=== PATIENT | female | born 1930 | race African-American/Black ===

== ENCOUNTER 2016-12-19 12:06 | Emergency (ER) | payer OTHER ==
[~2016-12-19] VITALS: Ht 152.4 cm; Wt 68.0 kg
--- NOTE | ~2016-12-19 | EKG ---
[address] [address] ELECTROCARDIOGRAM REPORT Name: TRAVIS GUSTAFSON Room #: [facility]#: [id number] Admission: 12/19/16 Attend Phys: Discharge: 12/19/16 Date of : 31 Report #: [id number] THIS REPORT FOR: //name// [facility] ED Test Date: 2016-12-19 Test Time: 13:10:15 Pat Name: TRAVIS GUSTAFSON Department: Room: Gender: F Homemaking Rehabilitation Consultant: PETRA : 1930 Requested By: Charmaine Horn Order Number: [id number] MD: Brandan Howard Measurements Intervals [place] Rate: 62 P: 28 MN: 163 QRS: -3 QRSD: 84 T: 49 QT: 450 QTc: 457 Interpretive Statements Sinus rhythm Left ventricular hypertrophy Compared to ECG 08/23/2015 21:46:11 Q waves no longer present Electronically Signed On 12-19-2016 16:25:35 CDT by Brandan Howard [email or web address] <ELECTRONICALLY SIGNED> By: Brandan Howard MD 12/19/16 1625 1310 1310 Brandan Howard MD /SHALINI
[~2016-12-19 12:06] MED LIST: ALLERGY RELIEF25 M2 PO; AMLODIPINE BESY10 MG PO; AZITHROMYCIN 2250 MG PO; BAYER CHEWABLE81 MG PO; BENADRYL25 MG PO; CARVEDILOL12.5 MG PO; CEFTIN 250 MG250 MG PO; COD LIVER OIL1 EAC4 PO; DOC-Q-LACE100 MG PO; DOK PLUS TABLE1 EACH PO; DOXYCYCLINE 10100 MG PO; DUONEB 2.5-0.5 M3 ML INH; ENOXAPARIN30 MG/0.1 SUBQ; FLONASE 0.05%50 MCG NASAL; HYDRALAZINE 10M10 MG PO; HYDRALAZINE 2525 MG PO; HYDROCODONE-AP1 EAC6 PO; LASIX 40 MG TAB40 M2 PO; LEVAQUIN 500 M500 MG PO; MEDROL4 MG PO; MIRALAX17 GM PO; MUCINEX TA600 MG/TA2 PO; NEURONTIN 300300 M1 PO; NITROGLYCERIN0.4 MG SUBLING; OMEPRAZOLE 20 M20 MG PO; POTASSIUM20 PO; ROBITUSSIN100 MG/53 PO; SINGULAIR 10 MG10 M1 PO; TESSALON PERLE100 MG PO; TYLENOL325 MG PO; VITAMIN D1000 UNI1 PO; VITAMIN E400 UNIT PO; VITAMINC500 PO; XANAX 0.25 MG0.25 MG PO; XANAX 0.5 MG0.5 MG PO
[2016-12-19 13:35] LABS: ABSOLUTE NEUTROPHILS 3.4 thou/uL (1.4-8.2); BASOPHILS 1.1 % (0.0-2.0); EOSINOPHILS 2.4 % (0.0-3.0); HEMATOCRIT 39.1 % (37.0-47.0); HEMOGLOBIN 12.8 gm/dL (12.0-15.0); LYMPHOCYTES 19.8 % (24.0-44.0); MCH 27.3 pg (26.0-34.0); MCHC 32.9 g/dL (28.0-37.0); MCV 83.1 fL (80.0-100.0); MONOCYTES 10.3 % (1.0-8.0); PLATELET COUNT 187 thou/uL (150-400); POLYS 66.4 % (36.0-66.0); RBC 4.71 mil/uL (4.20-5.00); RDW 17.3 % (10.5-14.5); WBC 5.2 thou/uL (4.0-11.0)
[2016-12-19 13:37] LABS: MANUAL DIFF NO
[2016-12-19 13:50] LABS: ANION GAP 6 mmol/L (7-16); BUN 17 mg/dL (7-18); CALCIUM 8.9 mg/dL (8.5-10.1); CHLORIDE 108 mmol/L (98-107); CO2 28 mmol/L (21-32); CREATININE 0.9 mg/dL (0.6-1.0); GLUCOSE 81 mg/dL (74-106); POTASSIUM 3.4 mmol/L (3.5-5.1); SODIUM 142 mmol/L (136-145)
[2016-12-19 13:59] LABS: TROPONIN-I < 0.04 ng/mL (<0.04-0.07)
[2016-12-19] MEDS ORDERED: AUGMENTIN 875-1 EACH PO (14:07)
== END 2016-12-19 14:46 | disposition home or self-care (01) ==
LOC: ER 12:06
PROVIDERS: Emergency Medicine
DX: J18.9 Pneumonia, unspecified organism (principal); R07.89 Other chest pain; I10 Essential (primary) hypertension; I25.10 Atherosclerotic heart disease of native coronary artery without angina pectoris; I25.2 Old myocardial infarction; Z86.73 Personal history of transient ischemic attack (TIA), and cerebral infarction without residual deficits; Z87.19 Personal history of other diseases of the digestive system; Z88.2 Allergy status to sulfonamides; Z88.5 Allergy status to narcotic agent

== ENCOUNTER 2017-12-02 10:44 | Inpatient (IN) | payer OTHER ==
[~2017-12-02] VITALS: Ht 157.5 cm; Wt 71.5 kg
--- NOTE | ~2017-12-02 | HC ---
[facility] [place] [address] CONSULTATION Name: TRAVIS GUSTAFSON Room #: 350-P [facility] IN ..#: [id number] Admission: 12/02/17 Attend Phys: Quintin aVlverde MD Discharge: 12/05/17 Date of : 31 Report #: [id number] THIS REPORT FOR: //name// CC: Quintin Valverde [facility] physician/PCP DATE OF SERVICE: 12/04/2017 HISTORY OF PRESENT ILLNESS: The patient is an 86-year-old female who is admitted with bright red blood per rectum, approximately 3 episodes. She underwent a flexible sigmoidoscopy on 12/03/2017 showing bleeding of the sigmoid colon, multiple diverticula in the left colon. She is being monitored regarding her current anemia. We are seeing her in rehabilitation medicine consultation. PAST MEDICAL HISTORY: She had a recent fall within the last couple of weeks, caused a scrape of her left anterior acuna and bruising of some left ribs; apparently, she was in an elevator and there was some sudden movement within the elevator that she needed to readjust for. 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 MEDICATIONS: Please see the full medication listing. This includes vitamins, herbals and supplements. ALLERGIES: CODEINE AND SULFA. SOCIAL HISTORY: She lives in an apartment alone. She did not utilize gait aids, although she has occasional cane and walker that she will utilize. She has an involved son. She also has several daughters. She is closely involved in buddhism. REVIEW OF SYSTEMS: Some residual rib discomfort. She notes some concern regarding the left anterior acuna excoriation, which is dressed. No current complaints of chest pain or shortness of breath or abdominal discomfort. Some mild nausea. PHYSICAL EXAMINATION: GENERAL: A pleasant rather slender 86-year-old female, appeared somewhat younger than stated age. She is bright, pleasant, somewhat verbose. Facies appeared to be symmetric. HEENT: Appeared to be benign. NEUROLOGIC: Cranial nerves grossly intact. Functional range of motion of both upper extremities strength is grade 4-/5. DTRs are trace to 1. Left anterior acuna does have an excoriation with dressing in place. There is no focal calf swelling. She can move the right lower extremity, probably a grade 4-/5. Left [address] [address] CONSULTATION Name: TRAVIS GUSTAFSON Room #: 350-P [facility] IN ..#: [id number] Admission: 12/02/17 Attend Phys: Quintin Valverde MD Discharge: 12/05/17 Date of : 31 Report #: [id number] lower extremity favors moving the left ankle some with the wound on her acuna, otherwise probably a grade 3+4-/5. She might have some mild increased tone of the left upper and left lower extremity. IMPRESSION: An 86-year-old female with the following problem list: 1. Generalized weakness and debilitation. 2. Diverticular bleed. 3. Acute blood loss anemia. 4. Hypertension. 5. Past history of cerebrovascular accident with some residual left-sided weakness. 6. Chronic kidney disease stage 3. 7. History of congestive heart failure. 8. Moderate aortic stenosis. 9. Coronary artery disease. PLAN: Insurance will need to be checked regarding rehab therapy issues. The patient indicates she wants her primary care changed to someone within the [facility]. We will ask Case Management to give information regarding this to the patient for followup post-discharge. Thank you for asking us to assist in this patient's care. <ELECTRONICALLY SIGNED> By: Paul Valdez MD 12/10/17 1455 1120 1500 Paul Valdez MD /nt
--- NOTE | ~2017-12-02 | EKG ---
[address] [address] ELECTROCARDIOGRAM REPORT Name: TRAVIS GUSTAFSON Room #: 350-[facility] IN ..#: [id number] Admission: 12/02/17 Attend Phys: Quintin Valverde MD Discharge: 12/05/17 Date of : 31 Report #: [id number] THIS REPORT FOR: //name// [facility] ED Test Date: 2017-12-02 Test Time: 11:03:23 Pat Name: TRAVIS GUSTAFSON Department: Room: 350 Gender: F Buggy Ladle Tender: MZOOK : 1930 Requested By: Destiny Robins Order Number: [id number] MD: Brandan Howard Measurements Intervals [place] Rate: 66 P: 40 MA: 149 QRS: -2 QRSD: 88 T: 71 QT: 420 QTc: 441 Interpretive Statements Sinus rhythm LVH with secondary repolarization abnormality Compared to ECG 01/23/2017 08:27:27 Left ventricular hypertrophy now present Early repolarization now present T-wave abnormality no longer present Prolonged QT interval no longer present Electronically Signed On 12-06-2017 14:37:04 CDT by Brandan Howard [email or web address] <ELECTRONICALLY SIGNED> By: Brandan Howard MD 12/06/17 1437 1103 1103 Brandan Howard MD /EPI
--- NOTE | ~2017-12-02 | P ---
[facility] [place] [address] PROCEDURE REPORT Name: TRAVIS GUSTAFSON Room #: 350-P ADM IN M.R.#: [id number] Admission: 12/02/17 Attend Phys: Quintin Valverde MD Discharge: Date of : 31 Report #: [id number] THIS REPORT FOR: //name// CC: Quintin Valverde [facility] physician/PCP DATE OF SERVICE: 12/04/2017 CHIEF COMPLAINT: Incision, debridement and evacuation of hematoma of the left leg. PREPROCEDURE DIAGNOSIS: Infected necrotic traumatic wound to the left lower extremity with retained hematoma. POSTPROCEDURE DIAGNOSIS: Infected necrotic traumatic wound to the left lower extremity with retained hematoma. PROCEDURE PERFORMED: Surgical debridement and evacuation of hematoma, left leg. HISTORY OF PRESENT ILLNESS: This is an 86-year-old female patient who sustained an injury to her left leg. She has had pain, swelling and drainage since that time. Examination reveals necrotic tissue and then an underlying hematoma. A timeout was performed prior to the procedure and the correct patient, site and laterality were confirmed. The patient was agreeable and gave verbal consent to the procedure. DESCRIPTION OF PROCEDURE: The left leg was prepped and draped in the usual sterile fashion and anesthetized with topical 2% lidocaine gel. Following this, a #15 bladed scalpel was used to excise necrotic tissue down to and including subcutaneous tissue exceeding the margins of the wounds. The debridement was carried down to healthy clean bleeding tissue. Moderate amount of necrotic tissue and retained hematoma were removed. The preprocedure measurements were 2.5 cm x 2.2 cm x 0.0 cm. The postprocedure diagnosis was 2.5 cm x 2.2 cm x 1.4 cm, with additional undermining of 1.5 cm from the 6 to 2 o'clock position. The patient tolerated the procedure well, with minimal pain. Estimated blood loss 3 mL. The wound was packed with a moist gauze dressing and the patient was left in a stable condition. <ELECTRONICALLY SIGNED> By: Varghese Starks MD 12/05/17 1402 12 2358 Varghese Starks MD /nt
--- NOTE | ~2017-12-02 | P ---
[facility] [place] [address] PROCEDURE REPORT Name: TRAVIS GUSTAFSON Room #: 350-P [facility] IN M.R.#: [id number] Admission: 12/02/17 Attend Phys: Quintin Valverde MD Discharge: 12/05/17 Date of : 31 Report #: [id number] THIS REPORT FOR: //name// CC: Quintin Valverde M.D. [facility] physician/PCP DATE OF SERVICE: 12/03/2017 PROCEDURE PERFORMED: Flexible sigmoidoscopy. HISTORY OF PRESENT ILLNESS: The patient is an 86-year-old female who presented with a GI bleed beginning yesterday morning. She describes bright red blood per rectum and maroon stools. She actually had a similar episode in January of last year and an arteriogram was performed, which was negative. She has a known history of pandiverticulosis on previous colonoscopy by a different hand router operator several years ago. She also is complaining of abdominal pain on admission. Her admit hemoglobin was 12.4, this dropped to 8.3 overnight. She had several episodes of bright red blood last evening, but this has slowed significantly. A CT scan of her abdomen and pelvis was performed, which showed high density in the descending colon and sigmoid colon junction region, suggesting a GI bleed from the sigmoid colon area. Plan is for flexible sigmoidoscopy today. DESCRIPTION OF PROCEDURE: The risks and benefits of the procedure were explained to the patient, those risks including but not limited to bleeding, perforation, the risk of sedation. She understood these risks and gave informed consent. Sedation was given using propofol per anesthesia. Next, a digital rectal exam was initially performed, which was normal. Next, using a standard Olympus colonoscope, the scope was placed in the patient's anus and advanced under direct vision into the midportion of the transverse colon. The overall prep was fair in areas, but most areas were fairly well visualized, multiple washings and aspirations were performed. The transverse colon was essentially normal, a few scattered diverticula, no evidence of blood throughout the transverse colon or descending colon. Multiple diverticula were noted in the descending colon and sigmoid colon. At the distal sigmoid colon, there was some bright red old blood and in the rectum. Multiple washings and aspirations were performed. There were no signs of active bleeding. There was no evidence of colitis. No mass lesions or polyps were noted. I spent time looking closely in these areas, but again no ulcerations or active bleeding source was noted. On retroflexion in the rectum, no abnormalities were noted. The scope was then withdrawn and the procedure terminated. The patient tolerated the procedure well. IMPRESSION: 1. Left-sided diverticulosis, small amount of old blood noted in the rectum and [facility] [address] [place] [address] PROCEDURE REPORT Name: TRAVIS GUSTAFSON Rohini Room #: 350-P [facility] IN M.R.#: [id number] Admission: 12/02/17 Attend Phys: Quintin Valverde MD Discharge: 12/05/17 Date of : 31 Report #: [id number] distal sigmoid colon. 2. Otherwise, normal flexible sigmoidoscopy. RECOMMENDATIONS: 1. Suspect the patient had a diverticular bleed, which has now stopped. At this time, we would continue to observe. If there is evidence of recurrent bleeding, consider an arteriogram. 2. We will advance diet as tolerated. Thank you for allowing me to participate in her care. <ELECTRONICALLY SIGNED> By: Greg Cordova MD 12/09/17 1727 1211 1303 Greg Cordova MD /nt
--- NOTE | ~2017-12-02 | EKG ---
[address] [address] ELECTROCARDIOGRAM REPORT Name: TRAVIS GUSTAFSON Room #: 350-[facility] IN .R.#: [id number] Admission: 12/02/17 Attend Phys: Quintin Valverde MD Discharge: 12/05/17 Date of : 31 Report #: [id number] THIS REPORT FOR: //name// [facility] Test Date: 2017-12-02 Test Time: 16:59:15 Pat Name: TRAVIS GUSTAFSON Department: Room: 350 Gender: F Gynaecological Oncologist: Abhinav AQUINO : 1930 Requested By: Quintin Valverde Order Number: [id number] MD: Brandan Howard Measurements Intervals [place] Rate: 77 P: OR: QRS: -13 QRSD: 85 T: 81 QT: 431 QTc: 488 Interpretive Statements Atrial fibrillation LVH with secondary repolarization abnormality Compared to ECG 01/23/2017 08:27:27 Left ventricular hypertrophy now present Early repolarization now present Sinus rhythm no longer present T-wave abnormality no longer present Electronically Signed On 12-06-2017 14:39:39 CDT by Brandan Howard [email or web address] <ELECTRONICALLY SIGNED> By: Brandan Howard MD 12/06/17 1439 1659 1659 Brandan Howard MD /EPI
--- NOTE | ~2017-12-02 | HC ---
[facility] [place] [address] CONSULTATION Name: TRAVIS GUSTAFSON Room #: 350-P ADM IN ..#: [id number] Admission: 12/02/17 Attend Phys: Quintin Valverde MD Discharge: Date of : 31 Report #: [id number] THIS REPORT FOR: //name// CC: Quintin WIN physician/PCP DATE OF SERVICE: 12/04/2017 CHIEF COMPLAINT: Traumatic wound to the left lower extremity. HISTORY OF PRESENT ILLNESS: This is an 86-year-old female patient who sustained a traumatic injury to her left lower extremity several weeks ago. She has had pain and drainage since that time. She was noted to have necrotic tissue and a retained hematoma. This was opened, debrided and drained at the bedside. Please see separate procedure note. The patient also complains that she has some fractured ribs, but denies any other wound related issues. PAST MEDICAL HISTORY: Positive for history of hypertension, diverticulosis, history of abdominal pain, rectal bleeding and previous pneumonia. ALLERGIES: SULFA AND CODEINE. MEDICATIONS: Include Tylenol, alprazolam, amlodipine, Coreg, diphenhydramine, Colace, famotidine, gabapentin, hydralazine, lisinopril, Zofran, polyethylene glycol. SOCIAL HISTORY: The patient admits to occasional alcohol use. Denies smoking. FAMILY HISTORY: Noncontributory. REVIEW OF SYSTEMS: CONSTITUTIONAL: The patient denies fever, chills or weight loss. NEUROLOGICAL: The patient does have some left-sided weakness following previous cerebrovascular accident. EYES: The patient denies visual changes, redness or drainage. ENT: The patient denies earache, nasal drainage, sore throat. CARDIOVASCULAR: The patient denies chest pain, palpitations, diaphoresis. PULMONARY: The patient denies cough or shortness of breath. GASTROINTESTINAL: The patient denies nausea or abdominal pain. ORTHOPEDIC: The patient does complain of pain and swelling, drainage from her left leg. Other systems in a 14-point review of systems are negative. PHYSICAL EXAMINATION: VITAL SIGNS: At this time includes temperature 36.6, pulse 59, respiratory rate of 17, blood pressure 120/60. [facility] [address] [place] [address] CONSULTATION Name: TRAVIS GUSTAFSON Room #: 350-[facility] IN [facility].#: [id number] Admission: 12/02/17 Attend Phys: Quintin Valverde MD Discharge: Date of : 31 Report #: [id number] GENERAL: This is a chronically ill-appearing female patient who appears to be in minimal distress. HEENT: Head normocephalic. Nose and throat are clear. NECK: Supple. LUNGS: Clear. HEART: Regular. ABDOMEN: Bowel sounds present. EXTREMITIES: Demonstrate a traumatic wound with eschar and some drainage to the left leg, this was drained. Please see separate procedure note and the hematoma was evacuated. NEUROLOGIC: The patient has left-sided weakness. LABORATORY DATA: Includes white blood cell count 5.2 with a hemoglobin of 7.5, hematocrit of 22.6. Sodium 144, potassium 3.5, chloride 113, CO2 of 25, BUN 26, creatinine 1.0. Albumin is low at 2.6. CLINICAL IMPRESSION: 1. Traumatic wound to the left lower extremity with tissue necrosis and retained hematoma, status post incision and drainage and evacuation of hematoma. 2. Moderate protein calorie malnutrition. 3. History of rectal bleeding. 4. Hypertension. RECOMMENDATIONS: At this point in time, we will pack the wound with quarter strength Dakin's moist gauze on a b.i.d. basis. We will provide gentle compression with Kerlix and Feliberto wrap. Hopefully, this will slowly fill in now that the hematoma has been evacuated. I appreciate having been asked to see her in consultation. <ELECTRONICALLY SIGNED> By: Varghese Starks MD 12/05/17 1402 16 3943 Varghese Starks MD /nt
[~2017-12-02 10:44] MED LIST changes: +AUGMENTIN 875-1 EACH PO; +COLCHICINE0.6 MG PO; +LISINOPRIL20 MG PO
[2017-12-02 10:53] VITALS: BP 122/71
[2017-12-02 11:53] LABS: ABSOLUTE NEUTROPHILS 3.5 thou/uL (1.4-8.2); BASOPHILS 0.8 % (0.0-2.0); EOSINOPHILS 1.9 % (0.0-3.0); HEMATOCRIT 37.5 % (37.0-47.0); HEMOGLOBIN 12.4 gm/dL (12.0-15.0); LYMPHOCYTES 14.3 % (24.0-44.0); MCH 27.2 pg (26.0-34.0); MCHC 33.1 g/dL (28.0-37.0); MCV 82.2 fL (80.0-100.0); MONOCYTES 6.3 % (1.0-8.0); PLATELET COUNT 204 thou/uL (150-400); POLYS 76.7 % (36.0-66.0); RBC 4.56 mil/uL (4.20-5.00); RDW 17.6 % (10.5-14.5); WBC 4.5 thou/uL (4.0-11.0)
[2017-12-02 12:00] LABS: CALCIUM 9.2 mg/dL (8.5-10.1); CREATININE 1.5 mg/dL (0.6-1.0); POTASSIUM 3.8 mmol/L (3.5-5.1)
[2017-12-02 12:05] LABS: APTT 22.9 Seconds (24.5-32.8); INR 1.1
[2017-12-02 12:06] LABS: ALBUMIN 3.4 g/dL (3.4-5.0); TOTAL BILIRUBIN 0.3 mg/dL (<0.1-1.0); TOTAL PROTEIN 6.9 g/dL (6.4-8.2)
[2017-12-02 15:48] VITALS: BP 155/85
[2017-12-02 17:12] VITALS: BP 112/71
[2017-12-02 20:20] VITALS: BP 166/96
[2017-12-02 21:17] LABS: HEMATOCRIT 29.7 % (37.0-47.0)
[2017-12-02] MEDS ORDERED: XANAX 0.25 MG0.25 MG PO (23:49)
[2017-12-03] VITALS: BP 144/64
[2017-12-03 04:18] LABS: HEMATOCRIT 24.6 % (37.0-47.0); HEMOGLOBIN 8.3 gm/dL (12.0-15.0); MCH 27.5 pg (26.0-34.0); MCHC 33.8 g/dL (28.0-37.0); MCV 81.4 fL (80.0-100.0); RBC 3.03 mil/uL (4.20-5.00); RDW 17.7 % (10.5-14.5); WBC 4.8 thou/uL (4.0-11.0)
[2017-12-03 04:27] LABS: ALBUMIN 2.6 g/dL (3.4-5.0); CALCIUM 8.3 mg/dL (8.5-10.1); POTASSIUM 3.5 mmol/L (3.5-5.1); TOTAL BILIRUBIN 0.4 mg/dL (<0.1-1.0); TOTAL PROTEIN 5.1 g/dL (6.4-8.2)
[2017-12-03 04:40] VITALS: BP 120/58
[2017-12-03 08:26] VITALS: BP 108/52
[2017-12-03 13:44] VITALS: BP 150/93
[2017-12-03 16:41] VITALS: BP 166/73
[2017-12-03] MEDS ORDERED: DIPHENHIST50 MG PO (19:38)
[2017-12-03 20:50] VITALS: BP 159/89
[2017-12-04 00:20] VITALS: BP 140/74
[2017-12-04 05:20] VITALS: BP 122/55
[2017-12-04 05:30] LABS: ABSOLUTE NEUTROPHILS 3.1 thou/uL (1.4-8.2); EOSINOPHILS 3.6 % (0.0-3.0); HEMATOCRIT 22.6 % (37.0-47.0); HEMOGLOBIN 7.5 gm/dL (12.0-15.0); LYMPHOCYTES 26.2 % (24.0-44.0); MCH 27.4 pg (26.0-34.0); MCHC 33.3 g/dL (28.0-37.0); MCV 82.3 fL (80.0-100.0); MONOCYTES 8.3 % (1.0-8.0); PLATELET COUNT 158 thou/uL (150-400); POLYS 60.9 % (36.0-66.0); RBC 2.75 mil/uL (4.20-5.00); RDW 17.3 % (10.5-14.5); WBC 5.2 thou/uL (4.0-11.0)
[2017-12-04 08:16] VITALS: BP 174/87
[2017-12-04 11:48] VITALS: BP 146/70
[2017-12-04 16:00] VITALS: BP 151/83
[2017-12-04 19:06] VITALS: BP 128/60
[2017-12-05 03:15] VITALS: BP 108/54
[2017-12-05 06:12] LABS: ABSOLUTE NEUTROPHILS 2.9 thou/uL (1.4-8.2); BASOPHILS 1.2 % (0.0-2.0); EOSINOPHILS 4.6 % (0.0-3.0); HEMATOCRIT 23.6 % (37.0-47.0); HEMOGLOBIN 7.9 gm/dL (12.0-15.0); LYMPHOCYTES 29.3 % (24.0-44.0); MCH 27.7 pg (26.0-34.0); MCHC 33.3 g/dL (28.0-37.0); MCV 83.1 fL (80.0-100.0); MONOCYTES 7.9 % (1.0-8.0); PLATELET COUNT 165 thou/uL (150-400); RBC 2.84 mil/uL (4.20-5.00); RDW 18.2 % (10.5-14.5); WBC 5.1 thou/uL (4.0-11.0)
[2017-12-05 07:25] LABS: ANISOCYTOSIS 1+
[2017-12-05 07:36] VITALS: BP 122/67
[2017-12-05 12:00] VITALS: BP 159/63
[2017-12-05 15:26] VITALS: BP 146/63
== END 2017-12-05 17:34 | DRG 356 ==
LOC: ER 10:44 → EROBS 13:07 → 3W 13:07 → 4W 16:00 → 3W 20:18
PROVIDERS: Hospitalist; Specialist; Student in an Organized Health Care Education/Training Program
PROC: 0DJD8ZZ Inspection of Lower Intestinal Tract, Via Natural or Artificial Opening Endoscopic (ICD-10-PCS; 2017-12-03)
PROC: 0JBP0ZZ Excision of Left Lower Leg Subcutaneous Tissue and Fascia, Open Approach (ICD-10-PCS; principal; 2017-12-04)
PROC: 0JCP0ZZ Extirpation of Matter from Left Lower Leg Subcutaneous Tissue and Fascia, Open Approach (ICD-10-PCS; principal; 2017-12-04)
DX: K57.31 Diverticulosis of large intestine without perforation or abscess with bleeding (principal); E43 Unspecified severe protein-calorie malnutrition; D62 Acute posthemorrhagic anemia; E44.0 Moderate protein-calorie malnutrition; I69.354 Hemiplegia and hemiparesis following cerebral infarction affecting left non-dominant side; I13.0 Hypertensive heart and chronic kidney disease with heart failure and stage 1 through stage 4 chronic kidney disease, or unspecified chronic kidney disease; K62.5 Hemorrhage of anus and rectum; I25.10 Atherosclerotic heart disease of native coronary artery without angina pectoris; I73.9 Peripheral vascular disease, unspecified; I50.9 Heart failure, unspecified; N18.3 Chronic kidney disease, stage 3 (moderate); I35.0 Nonrheumatic aortic (valve) stenosis; J30.9 Allergic rhinitis, unspecified; M62.84 Sarcopenia; S81.802A Unspecified open wound, left lower leg, initial encounter; I25.2 Old myocardial infarction; Z90.49 Acquired absence of other specified parts of digestive tract; Z90.711 Acquired absence of uterus with remaining cervical stump; Z88.6 Allergy status to analgesic agent; Z88.2 Allergy status to sulfonamides; Z68.28 Body mass index [BMI] 28.0-28.9, adult; Z95.5 Presence of coronary angioplasty implant and graft; Z87.11 Personal history of peptic ulcer disease; X58.XXXA Exposure to other specified factors, initial encounter; Y93.89 Activity, other specified; Y92.89 Other specified places as the place of occurrence of the external cause; Y99.8 Other external cause status; Z79.899 Other long term (current) drug therapy
CPT/HCPCS: 10879; 62110; 62900; 70005

== ENCOUNTER 2017-12-17 11:28 | Inpatient (IN) | payer OTHER ==
[~2017-12-17] VITALS: Ht 157.5 cm; Wt 72.8 kg
--- NOTE | ~2017-12-17 | HC ---
[facility] [address] [place] [address] CONSULTATION Name: TRAVIS GUSTAFSON Room #: 215-P ADM IN M.R.#: [id number] Admission: 12/17/17 Attend Phys: Bhavik Marie MD Discharge: Date of : 31 Report #: [id number] THIS REPORT FOR: //name// CC: Bhavik Marie Pulmonary Consultation REFERRAL PHYSICIAN: Bhavik Marie MD REASON FOR REFERRAL: Hypoxia. HISTORY OF PRESENT ILLNESS: The patient is an 87-year-old -[place] female who presents to emergency room following a fall. She had complained of chest pain. Since admission, she has been noted to be hypoxic. A pulmonary consultation was consulted. According to records, she apparently fell on the left side of the chest. Chest x-ray earlier today shows mild infiltrates in the left lower lobe. CT chest was performed yesterday showing small bilateral pleural effusion, mild infiltrates in both of the bases, atelectasis, and a right upper lobe nodule. The patient states that she has been short of breath for the past year. She is concerned about possible mold exposure where she lives. She resides at [facility]. Currently, she denies any change, productive cough or hemoptysis. She has left-sided chest wall pain. The patient has smoked, but quit many years ago. She has never been diagnosed with chronic lung disease. PAST MEDICAL HISTORY: Notable for history of CVA with left-sided weakness, coronary artery disease with myocardial infarction, hypertension, peripheral vascular disease with undergoing stent placement, history of heart failure, grade 1 diastolic dysfunction, moderate aortic stenosis. PAST SURGICAL HISTORY: As mentioned above including a partial hysterectomy. ALLERGIES: CODEINE, SULFA, reactions not specified. MEDICATIONS: From the skilled nursing include hydralazine, Coreg, Zantac, Benadryl, omeprazole, MiraLax, Neurontin, Singulair, Flonase, amlodipine, vitamin D supplements, Zestril. FAMILY HISTORY: Noncontributory. SOCIAL HISTORY: As mentioned above. The patient has smoked many years ago. She smoked in college only. Otherwise denies any alcohol use. She currently resides at [facility]. [address] [address] CONSULTATION Name: TRAVIS GUSTAFSON Room #: 215-P [facility] IN [facility]#: [id number] Admission: 12/17/17 Attend Phys: Bhavik Marie MD Discharge: Date of : 31 Report #: [id number] REVIEW OF SYSTEMS: As mentioned above, otherwise 10-point system review negative. PHYSICAL EXAMINATION: GENERAL: She is awake, alert, in no apparent distress. She appears mildly dyspneic. VITAL SIGNS: Temperature is 97.6 degrees Fahrenheit, pulse is 65, respiratory rate is 16, blood pressure is 147/65 mmHg, saturation is 91% on O2. HEENT: Normocephalic, atraumatic. NECK: Supple, without lymphadenopathy or thyromegaly. CHEST: Breath sounds are fair due to poor effort. Few scattered crackles in the bases. No wheezes. CARDIOVASCULAR: Normal S1, S2. There are no murmurs or gallop. There is no JVD. There is no carotid bruit. Pulses are 2+/4+ bilaterally. ABDOMEN: Soft, nontender, no organomegaly or masses felt. GENITOURINARY: Deferred. RECTAL: Deferred. EXTREMITIES: There is no edema, cyanosis or clubbing. LABORATORY DATA: Chest x-ray and chest CT as mentioned above. Chest x-ray earlier today shows slight increase in left lower lobe infiltrates. Chest CT as mentioned above. A 2D echocardiogram showed pulmonary artery pressure measuring 78 mmHg, moderate aortic stenosis. Right ventricle is dilated. LV function is normal. Ejection fraction is felt to be normal. Grade 2 pseudonormal filling dynamic, mild mitral regurgitation. Nuclear cardiac stress testing showed no evidence of ischemia. Troponin 0.27. Lumbar spine x-ray shows spondylosis. CT of the cervical spine was grossly unremarkable. Shoulder x-ray shows no obvious subluxation or fractures. Electrolytes: Sodium 140, potassium 4.5, chloride 106, CO2 of 26, BUN 24, creatinine is 1.4. Liver enzymes are grossly unremarkable. WBC 6000, hemoglobin 9.4. Arterial blood gas revealed pH 7.40, pCO2 of 41, and pO2 of 52 on 2 L of O2. IMPRESSION: 1. Acute hypoxic respiratory failure in this 87-year-old -[place] female. She recently fell sustaining injuries to the left chest. Chest x-ray shows increased infiltrate, possible atelectasis in the left lower lobe. Etiology probably related to pulmonary contusion, atelectasis. I do not think it is related to pulmonary embolus. Pneumonia is felt to be less likely though cannot be ruled out. 2. Pulmonary hypertension, severe, may be related to chest injuries mentioned [facility] [address] [place] [address] CONSULTATION Name: TRAVIS GUSTAFSON Room #: 215-P ADM IN M.R.#: [id number] Admission: 12/17/17 Attend Phys: Bhavik Marie MD Discharge: Date of : 31 Report #: [id number] above. She also has valvular cardiomyopathy as a secondary cause. With advanced age, I do not think further workup is indicated at this time. We would suggest followup echocardiogram in the next 6 months. 3. History of coronary artery disease, nuclear stress testing as mentioned above. It is grossly unremarkable. 4. History of cerebrovascular accident, mild weakness on the left leg. 5. Hypertension. 6. Debility and weakness. 7. Chronic back pain. RECOMMENDATION: We will continue O2 for saturation 90%, chest physiotherapy, followup chest x-ray. I do not think antibiotics are indicated at this time. Increasing mobility, ambulation may help. Thank you for this consultation. <ELECTRONICALLY SIGNED> By: Kali Jaimes MD 12/20/17 1906 1659 0513 Kali Jaimes MD /nt
--- NOTE | ~2017-12-17 | EKG ---
[address] [address] ELECTROCARDIOGRAM REPORT Name: TRAVIS GUSTAFSON Rohini Room #: 215-[facility] IN M.R.#: [id number] Admission: 12/17/17 Attend Phys: Bhavik Marie MD Discharge: 12/26/17 Date of : 31 Report #: [id number] THIS REPORT FOR: //name// [facility] Test Date: 2017-12-26 Test Time: 17:18:57 Pat Name: TRAVIS GUSTAFSON Department: Room: 215 Gender: F Global Sourcing Manager: WENDY : 1930 Requested By: Kali Jaimes Order Number: [id number] MD: Brandan Howard Measurements Intervals [place] Rate: 48 P: -83 [place]: 144 QRS: -2 QRSD: 85 T: 24 QT: 473 QTc: 423 Interpretive Statements Sinus or ectopic atrial bradycardia Atrial premature complex Left ventricular hypertrophy Compared to ECG 12/17/2017 12:46:19 Electronically Signed On 12-27-2017 8:20:24 CDT by Brandan Howard [email or web address] <ELECTRONICALLY SIGNED> By: Brandan Howard MD 12/27/17 0820 17 17 Brandan Howard MD /EPI
--- NOTE | ~2017-12-17 | 2DMMODE ---
[facility] [address] [place] [address] 2 D/M-MODE ECHOCARDIOGRAM Name: SJTRAVIS L Room #: 215-P [facility] IN ..#: [id number] Admission: 12/17/17 Attend Phys: Bhavik Marie MD Discharge: Date of : 32 Date of Service: 12/18/17 1529 Report #: [id number] THIS REPORT FOR: //name// APPROVED REPORT Study performed: 12/18/2017 13:00:14 EXAM: Comprehensive 2D, Doppler, and color-flow Echocardiogram Patient Location: Bedside Room #: [facility] Status: routine BSA: 1.78 HR: 57 bpm BP: 150/70 mmHg Rhythm: NSR Other Information Study Quality: Good Indications Aortic Valve Disease Congestive Heart Failure CAD Hypertension/HDD 2D Dimensions RVDd: 47.20 mm IVSd: 12.46 (7-11mm) LVOT Diam: 18.35 (18-24mm) LVDd: 39.66 mm PWd: 12.29 (7-11mm) Ascending Ao: 32.05 (22-36mm) LVDs: 24.51 (25-40mm) Aortic Root: 31.06 mm IVC: 29.00 mm Volumes Left Atrial Volume (Systole) Single Plane 4CH: 99.25 mL Single Plane 2CH: 117.83 mL LA ESV Index: 67.00 mL/m2 Aortic Valve AoV Peak Romeo.: 3.17 m/s AO Peak Gr.: 40.15 mmHg LVOT Max P.26 mmHg AO Mean Gr.: 20.87 mmHg LVOT Mean P.95 mmHg AO V2 Mean: 2.10 m/s LVOT Max V: 1.35 m/s AO V2 VTI: 76.57 cm LVOT Mean V: 0.92 m/s JEREMY (VTI): 1.18 cm2 LVOT V1 VTI: 34.08 cm [facility] [employer] [place] [address] 2 D/M-MODE ECHOCARDIOGRAM Name: TRAVIS GUSTAFSON Rohini Room #: 215-P [facility] IN ..#: [id number] Admission: 12/17/17 Attend Phys: Bhavik Marie MD Discharge: Date of : 32 Date of Service: 12/18/17 1529 Report #: [id number] JEREMY Vmax: 1.12 cm2 SV (LVOT): 90.12 mL Mitral Valve E/A Ratio: 1.1 MV Decel. Time: 249.30 ms MV E Max Romeo.: 1.51 m/s MV A Romeo.: 1.41 m/s MV PHT: 72.30 ms IVRT: 64.59 ms Pulmonary Valve PV Peak Romeo.: 0.97 m/s PV Peak Gr.: 3.76 mmHg MO End Vmax: 1.29 m/s Pulmonary Vein P Vein S: 0.65 m/s P Vein A: 0.26 m/s P Vein D: 0.44 m/s P Vein A Dur.: 124.6 msec P Vein S/D Ratio: 1.48 Tricuspid Valve TR Peak Romeo.: 4.12 m/s TR Peak Gr.: 67.92 mmHg PA Pressure: 78.00 mmHg Left Ventricle The left ventricle is normal size. There is normal LV segmental wall motion. Mild concentric left ventricular hypertrophy. The left ventricular systolic function is normal. The left ventricular ejection fraction is within the normal range. LVEF is 60-65%. Grade II - pseudonormal filling dynamics. Right Ventricle Right ventricle is dilated. The right ventricular systolic function is normal. Atria Left atrium is dilated. Right atrium is dilated. Aortic Valve The aortic valve is normal in structure. Aortic valve is calcified. Trace aortic regurgitation. Moderate aortic stenosis. Mitral Valve The mitral valve is normal in structure. Mild mitral regurgitation. No evidence of mitral valve stenosis. [facility] [address] [place] [address] 2 D/M-MODE ECHOCARDIOGRAM Name: TRAVIS GUSTAFSON Rohini Room #: 215-P [facility] IN M.R.#: [id number] Admission: 12/17/17 Attend Phys: Bhavik Marie MD Discharge: Date of : 32 Date of Service: 12/18/17 1529 Report #: [id number] Tricuspid Valve The tricuspid valve is normal in structure. There is moderate tricuspid regurgitation. Estimated PAP 78mmHg. There is severe pulmonary hypertension. Pulmonic Valve The pulmonary valve is normal in structure. Trace pulmonic regurgitation. Great Vessels The aortic root is normal in size. IVC is dilated and collapses >50% with inspiration. Pericardium There is no pericardial effusion. <Conclusion> The left ventricle is normal size. Mild concentric left ventricular hypertrophy. The left ventricular systolic function is normal. Grade II - pseudonormal filling dynamics. Right ventricle is dilated. Left atrium is dilated. Right atrium is dilated. Moderate aortic stenosis. Mild mitral regurgitation. There is moderate tricuspid regurgitation. Estimated PAP 78mmHg. There is severe pulmonary hypertension. <ELECTRONICALLY SIGNED> By: Aram Daugherty MD 12/18/17 1529 1529 1529 Aram Daugherty MD /INF
--- NOTE | ~2017-12-17 | HC ---
[facility] [address] [place] [address] CONSULTATION Name: TRAVIS GUSTAFSON Rohini Room #: 215-P ADM IN M.R.#: [id number] Admission: 12/17/17 Attend Phys: Bhavik Marie MD Discharge: Date of : 31 Report #: [id number] THIS REPORT FOR: //name// CC: Bhavik Marie DATE OF SERVICE: 12/18/2017 INDICATION: Chest pain. HISTORY OF PRESENT ILLNESS: This is an 87-year-old female who experienced an episode of dizziness and falling at [facility]. She had been there undergoing physical therapy. According to the patient, yesterday morning, she felt dizzy when she stood up. She then proceeded to fall to the ground due to weakness. She does not believe that she lost consciousness. After her fall, she had a bloody nose and this chronic discomfort on the left side of her chest. It is reproducible with deep inspiration and palpation over the area. Prior to this event, she had been ambulating with a walker, not having any issues with chest pain or shortness of breath. There is no history of fever, chills or congestion. She was found to have a peak troponin level of 0.37. ECG reveals sinus rhythm, with no ST segment abnormalities. PAST MEDICAL HISTORY: CAD with prior AL. CVA with left-sided weakness, hypertension, hypercholesterolemia, History of possible Raynaud syndrome. Recently admitted for GI bleed, attributed to diverticulosis at the site of the descending colon and sigmoid colon. She has a history of blood transfusions. Her last admission was in 11/2017 for rectal bleed. A flex sigmoidoscopy was negative for an acute bleed, old blood was evident at the diverticular site. ALLERGIES: CODEINE, SULFA. MEDICATIONS: Include hydralazine 25 mg 3 times a day, Coreg 3.125 b.i.d., Xanax, omeprazole, Neurontin, amlodipine 10 mg, lisinopril 20 mg. SOCIAL HISTORY: Denies tobacco use. FAMILY HISTORY: Negative for premature CAD. REVIEW OF SYSTEMS: A full 10-point review of systems performed. Only the pertinent positives and negatives are described in the HPI. PHYSICAL EXAMINATION: VITAL SIGNS: Blood pressure is 130/60, heart rate is 52 beats per minute. GENERAL APPEARANCE: An elderly appearing female in no acute distress. HEENT: Normocephalic/atraumatic. Mucosa moist. NECK: Supple. LUNGS: Clear to auscultation. [facility] [address] [place] [address] CONSULTATION Name: TRAVIS GUSTAFSON Room #: 215-P [facility] IN [facility]#: [id number] Admission: 12/17/17 Attend Phys: Bhavik Marie MD Discharge: Date of : 31 Report #: [id number] CARDIAC: Regular rate and rhythm. S1, S2 positive, 1/6 systolic murmur. ABDOMEN: Soft, nontender. EXTREMITIES: No cyanosis. Bandage at left acuna. Positive edema, left greater than right. ECG reveals sinus rhythm, no acute ST segment changes. LABORATORY VALUES: Peak troponin is 0.37, hemoglobin is 9.4, creatinine is 1.4. ASSESSMENT AND PLAN: 1. Chest pain syndrome, this occurred after her fall resulting in an injury to left side of her chest. It is reproducible with palpation and deep inspiration. The etiology is due to a musculoskeletal cause. 2. Minimal troponin elevation in the indeterminate range. The patient has a prior history of coronary artery disease and myocardial infarction. The ECG does not show any acute ST segment changes. The cause of her fall is unclear. Would proceed with noninvasive stress testing to evaluate her ischemic burden. 3. Aortic stenosis/moderate, reports no episodes of exertional angina, dyspnea or congestion. We will repeat an echo to assess for progression of her valvular heart disease. 4. Gastrointestinal bleed, history of GI bleed in 2017 requiring blood transfusions. [place] to be from diverticulosis at the site of the descending colon and sigmoid colon. Denies any melena or bright red blood per rectum at this time. We will follow hemoglobin. 5. Dizziness, with standing. We will check orthostatic blood pressure. Continue with medications for now. <ELECTRONICALLY SIGNED> By: Aram Daugherty MD 12/18/17 1538 0824 1349 Aram Daugherty MD /nt
--- NOTE | ~2017-12-17 | EKG ---
[address] [place] [address] ELECTROCARDIOGRAM REPORT Name: TRAVIS GUSTAFSON Room #: 215- ADM IN M.R.#: [id number] Admission: 12/17/17 Attend Phys: Bhavik Marie MD Discharge: Date of : 31 Report #: [id number] THIS REPORT FOR: //name// [facility] ED Test Date: 2017-12-17 Test Time: 12:46:19 Pat Name: TRAVIS GUSTAFSON Department: Room: [facility] Gender: F Chief Technician: SOTERO : 1930 Requested By: Tania Martinez Order Number: [id number] MD: Dayday Mcfadden Measurements Intervals [place] Rate: 56 P: 51 AR: 166 QRS: 18 QRSD: 91 T: 63 QT: 463 QTc: 447 Interpretive Statements Sinus rhythm Nonspecific T wave abnormality Compared to ECG 12/02/2017 16:59:15 Atrial fibrillation no longer present ST and T wave abnormality less pronounced Electronically Signed On 12-17-2017 16:38:52 CDT by Dayday Mcfadden [email or web address] <ELECTRONICALLY SIGNED> By: Dayday Mcfadden MD, [facility] 12/17/17 1638 1246 1246 Dayday Mcfadden MD, [facility] /EPI
[2017-12-17 11:28] VITALS: BP 128/65
[~2017-12-17 11:28] MED LIST changes: +DIPHENHIST50 MG PO
[2017-12-17 12:54] LABS: ABSOLUTE NEUTROPHILS 4.6 thou/uL (1.4-8.2); BASOPHILS 0.7 % (0.0-2.0); EOSINOPHILS 1.7 % (0.0-3.0); HEMATOCRIT 28.3 % (37.0-47.0); HEMOGLOBIN 9.4 gm/dL (12.0-15.0); MCH 27.1 pg (26.0-34.0); MCHC 33.2 g/dL (28.0-37.0); MCV 81.8 fL (80.0-100.0); MONOCYTES 7.3 % (1.0-8.0); PLATELET COUNT 328 thou/uL (150-400); POLYS 77.3 % (36.0-66.0); RBC 3.45 mil/uL (4.20-5.00); RDW 18.9 % (10.5-14.5)
[2017-12-17 13:05] LABS: CALCIUM 9.2 mg/dL (8.5-10.1); CREATININE 1.4 mg/dL (0.6-1.0); POTASSIUM 4.5 mmol/L (3.5-5.1)
[2017-12-17 13:10] LABS: ALBUMIN 3.3 g/dL (3.4-5.0); TOTAL BILIRUBIN 0.2 mg/dL (<0.1-1.0); TOTAL PROTEIN 7.5 g/dL (6.4-8.2); TROPONIN-I 0.37 ng/mL (<0.06)
[2017-12-17 13:31] LABS: ANISOCYTOSIS 2+; MICROCYTES 1+; PLATELET ESTIMATE NORMAL
[2017-12-17 13:59] VITALS: BP 110/65
[2017-12-17 14:18] VITALS: BP 132/66
[2017-12-17 14:41] LABS: URINE BILIRUBIN NEGATIVE (Negative); URINE BLOOD NEGATIVE (Negative); URINE CLARITY CLEAR; URINE COLOR YELLOW; URINE GLUCOSE-RANDOM* NEGATIVE (Negative); URINE KETONES NEGATIVE (Negative); URINE LEUKOCYTES-REFLEX NEGATIVE (Negative); URINE NITRITE-REFLEX NEGATIVE (Negative); URINE PROTEIN (DIPSTICK) NEGATIVE (Negative); URINE SPECIFIC GRAVITY >= 1.030 (1.005-1.035); URINE UROBILINOGEN 0.2 E.U./dl (0.2-1.0)
[2017-12-17 15:02] VITALS: BP 144/62
[2017-12-17 19:33] VITALS: BP 114/60
[2017-12-18] VITALS (9 sets, daily range): BP systolic 114–170; BP diastolic 52–76
[2017-12-19 03:30] VITALS: BP 138/60
[2017-12-19 08:30] VITALS: BP 147/65
[2017-12-19 11:40] VITALS: BP 190/123
[2017-12-19 15:30] LABS: BE(vivo) 0.6 mmol/L (-2 to +3); HCO3 25.4 mmol/L (22.0-26.0); PCO2 41.1 mmHg (35.0-45.0); pH 7.408 (7.360-7.450); sO2 87.6 % (92.0-98.0)
[2017-12-19 15:31] LABS: PO2 52.8 mmHg (80.0-100.0)
[2017-12-19 17:03] VITALS: BP 156/75
[2017-12-19 19:00] VITALS: BP 152/73
[2017-12-20] VITALS (7 sets, daily range): BP systolic 109–145; BP diastolic 45–66
[2017-12-20 06:08] LABS: CALCIUM 9.4 mg/dL (8.5-10.1); CREATININE 1.1 mg/dL (0.6-1.0); POTASSIUM 4.2 mmol/L (3.5-5.1)
[2017-12-21 04:17] VITALS: BP 118/55
[2017-12-21 04:21] LABS: HEMATOCRIT 24.4 % (37.0-47.0); HEMOGLOBIN 7.9 gm/dL (12.0-15.0); MCH 25.7 pg (26.0-34.0); MCHC 32.2 g/dL (28.0-37.0); MCV 79.8 fL (80.0-100.0); PLATELET COUNT 271 thou/uL (150-400); RBC 3.05 mil/uL (4.20-5.00); RDW 17.9 % (10.5-14.5); WBC 4.6 thou/uL (4.0-11.0)
[2017-12-21 04:33] LABS: CALCIUM 8.9 mg/dL (8.5-10.1); CREATININE 1.2 mg/dL (0.6-1.0); POTASSIUM 3.9 mmol/L (3.5-5.1)
[2017-12-21 04:48] LABS: ANISOCYTOSIS 1+; POLYCHROMASIA OCCASIONAL
[2017-12-21 04:49] LABS: HYPOCHROMASIA SLIGHT; MICROCYTES 1+
[2017-12-21 07:40] VITALS: BP 150/59
[2017-12-21 13:01] VITALS: BP 153/61
[2017-12-21 14:45] VITALS: BP 161/60
[2017-12-21 15:31] VITALS: BP 142/57
[2017-12-22 03:26] VITALS: BP 123/50
[2017-12-22 08:16] VITALS: BP 150/61
[2017-12-22 11:20] VITALS: BP 148/64
[2017-12-22 15:03] VITALS: BP 140/58
[2017-12-22 20:03] VITALS: BP 184/62
[2017-12-22 20:13] LABS: HEMATOCRIT 28.3 % (37.0-47.0); MCH 25.3 pg (26.0-34.0); MCHC 31.9 g/dL (28.0-37.0); MCV 79.4 fL (80.0-100.0); OBSERVED RETIC COUNT 2.44 % (0.6-2.6); RBC 3.56 mil/uL (4.20-5.00); RDW 18.2 % (10.5-14.5); WBC 5.1 thou/uL (4.0-11.0)
[2017-12-22 20:22] LABS: CALCIUM 9.7 mg/dL (8.5-10.1); POTASSIUM 3.8 mmol/L (3.5-5.1)
[2017-12-22 20:25] LABS: % SATURATION 5 % (20-39); IRON 14 ug/dL (50-170); TIBC 297 ug/dL (250-450)
[2017-12-22 21:22] LABS: FOLIC ACID 31.6 ng/mL (8.6-58.9)
[2017-12-22 21:39] VITALS: BP 147/79
[2017-12-23 04:39] VITALS: BP 106/38
[2017-12-23 07:56] VITALS: BP 115/45
[2017-12-23 12:01] VITALS: BP 135/55
[2017-12-23 15:22] VITALS: BP 125/51
[2017-12-23 19:37] VITALS: BP 121/51
[2017-12-24 05:06] VITALS: BP 140/62
[2017-12-24 08:01] VITALS: BP 151/71
[2017-12-24 11:45] VITALS: BP 123/51
[2017-12-24 17:14] VITALS: BP 106/26
[2017-12-24 19:30] VITALS: BP 137/72
[2017-12-25 04:51] VITALS: BP 97/55
[2017-12-25 08:06] VITALS: BP 121/60
[2017-12-25 11:39] VITALS: BP 142/56
[2017-12-25 15:56] VITALS: BP 140/65
[2017-12-25 16:40] VITALS: BP 127/61
[2017-12-25] MEDS ORDERED: IPRAT-ALBUT 0.5-3 ML INH (19:18)
[2017-12-25] MEDS ORDERED: COREG6.25 MG PO (19:19)
[2017-12-25] MEDS ORDERED: LISINOPRIL40 MG PO (19:21)
[2017-12-25] MEDS ORDERED: AMLODIPINE BESY10 MG PO (19:21)
[2017-12-25] MEDS ORDERED: ASPIR 8181 MG PO (19:22)
[2017-12-25] MEDS ORDERED: VOLTAREN GEL 1100 G1 TOP (19:24)
[2017-12-25] MEDS ORDERED: TYLENOL EXTRA500 MG PO (19:24)
[2017-12-25] MEDS ORDERED: NORCO 10-325 T1 EACH PO (19:24)
[2017-12-25] MEDS ORDERED: SINGULAIR 10 MG10 M1 PO (19:25)
[2017-12-25] MEDS ORDERED: ALPRAZOLAM 0.0.25 M1 PO (19:25)
[2017-12-25] MEDS ORDERED: NEURONTIN 300300 M1 PO (19:25)
[2017-12-25] MEDS ORDERED: FLONASE 0.05%50 MCG NASAL (19:26)
[2017-12-25] MEDS ORDERED: ANTIVERT25 MG PO (19:26)
[2017-12-25] MEDS ORDERED: GENTAMICIN 0.1%15 G2 TOP (19:33)
[2017-12-25 20:31] VITALS: BP 127/55
[2017-12-26] VITALS (7 sets, daily range): BP systolic 124–142; BP diastolic 64–82
== END 2017-12-26 18:48 | disposition home health service (06) | DRG 913 ==
LOC: ER 11:28 → EROBS 13:54 → 2N 13:54
PROVIDERS: Internal Medicine; Internal Medicine Pulmonary Disease; Nurse Practitioner Family
DX: S29.9XXA Unspecified injury of thorax, initial encounter (principal); J96.01 Acute respiratory failure with hypoxia; K57.31 Diverticulosis of large intestine without perforation or abscess with bleeding; I38 Endocarditis, valve unspecified; I69.354 Hemiplegia and hemiparesis following cerebral infarction affecting left non-dominant side; N17.9 Acute kidney failure, unspecified; I42.8 Other cardiomyopathies; E44.0 Moderate protein-calorie malnutrition; I50.32 Chronic diastolic (congestive) heart failure; I13.0 Hypertensive heart and chronic kidney disease with heart failure and stage 1 through stage 4 chronic kidney disease, or unspecified chronic kidney disease; S81.802A Unspecified open wound, left lower leg, initial encounter; R07.9 Chest pain, unspecified; I25.10 Atherosclerotic heart disease of native coronary artery without angina pectoris; I73.9 Peripheral vascular disease, unspecified; N18.3 Chronic kidney disease, stage 3 (moderate); I35.0 Nonrheumatic aortic (valve) stenosis; S16.1XXA Strain of muscle, fascia and tendon at neck level, initial encounter; E78.00 Pure hypercholesterolemia, unspecified; I27.20 Pulmonary hypertension, unspecified; G89.29 Other chronic pain; M54.9 Dorsalgia, unspecified; D64.9 Anemia, unspecified; I07.1 Rheumatic tricuspid insufficiency; S80.12XA Contusion of left lower leg, initial encounter; S20.212A Contusion of left front wall of thorax, initial encounter; I34.0 Nonrheumatic mitral (valve) insufficiency; I25.2 Old myocardial infarction; Z90.49 Acquired absence of other specified parts of digestive tract; Z90.711 Acquired absence of uterus with remaining cervical stump; Z87.891 Personal history of nicotine dependence; Z68.29 Body mass index [BMI] 29.0-29.9, adult; Z88.6 Allergy status to analgesic agent; Z88.2 Allergy status to sulfonamides; Z95.820 Peripheral vascular angioplasty status with implants and grafts; W18.39XA Other fall on same level, initial encounter; Y93.89 Activity, other specified; Y92.89 Other specified places as the place of occurrence of the external cause; Y99.8 Other external cause status
CPT/HCPCS: 10081

== ENCOUNTER → 2018-01-02 | Outpatient (CLI) | payer OTHER ==
[~2018-01-02] VITALS: Ht 157.5 cm; Wt 66.4 kg
[~2018-01-02] MED LIST changes: +ALPRAZOLAM 0.0.25 M1 PO; +ANTIVERT25 MG PO; +ASPIR 8181 MG PO; +COREG6.25 MG PO; +GENTAMICIN 0.1%15 G2 TOP; +IPRAT-ALBUT 0.5-3 ML INH; +LISINOPRIL40 MG PO; +NORCO 10-325 T1 EACH PO; +TYLENOL EXTRA500 MG PO; +VOLTAREN GEL 1100 G1 TOP
--- NOTE | ~2018-01-02 | HC ---
[facility] [place] [address] [place] [address] CONSULTATION Name: TRAVIS GUSTAFSON Room #: REG ALEX Sandeep#: [id number] Admission: 01/02/18 Attend Phys: YANN Burch Discharge: Date of : 31 Report #: [id number] THIS REPORT FOR: //name// CC: Ginger Doddhens DATE OF SERVICE: 01/02/2018 REQUESTING PHYSICIAN: Ginger Gr NP CHIEF COMPLAINT: Left leg wound. HISTORY OF PRESENT ILLNESS: This is an 87-year-old white female who we [facility] post-hospital followup of a traumatic wound to her left lower extremity. The patient had suffered a traumatic hematoma of the left lower extremity for which we were using TheraHoney alginate with home health nurses being changed 3 times weekly. The patient does complain of slightly increased pain today, 5/10, which she describes as a throbbing, aching pain, worse with dressing changes, better with rest and elevation. The patient, however, denies fevers, chills, chest pain, shortness of breath, nausea, vomiting or diarrhea. The patient denies any other new wounds. The patient also states that she has had slightly increased edema of the left lower extremity and has not been wearing any type of compression. CURRENT MEDICATIONS: Reviewed. ALLERGIES: REVIEWED AND INCLUDE SULFA AND CODEINE. PHYSICAL EXAMINATION: VITAL SIGNS: Temperature 97.6, pulse 72, BP 134/71. GENERAL: This is an alert and oriented x 3 pleasant black female who is in absolutely no distress. HEENT: Normocephalic, atraumatic. Mucous membranes moist. Pupils are round. Sclerae white. LUNGS: Clear. HEART: Regular. ABDOMEN: Soft, nontender. EXTREMITIES: Evaluation of left lower extremity reveals 2+ edema with slight increased erythema, warmth in the periwound region. It is tender to palpation as well. There are no signs of fluctuance or abscess. Distal pulses are 2+. Evaluation of the left lower extremity wound in the lateral aspect of the lower extremity reveals a full thickness wound down to and including subcutaneous tissue. It is 100% granulated. There is minimal to moderate discharge without odor. There is no tunneling or undermining. No other associated wounds are noted. Left heel is intact. NEUROLOGIC: Cranial nerves 2-12 grossly intact. Motor and sensory grossly [address] [address] CONSULTATION Name: TRAVIS GUSTAFSON Room #: VENKAT Hopkins#: [id number] Admission: 01/02/18 Attend Phys: YANN Burch Discharge: Date of : 31 Report #: [id number]. IMPRESSION: 1. 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 2. Left lower extremity edema. 3. History of peripheral arterial disease. 4. Generalized debility. PLAN: At this time, we will change from the TheraHoney alginate over to Aquacel Ag to the left wound, change this Saturday, Saturday and Saturday. We will add Kerlix and Feliberto from toes to knee to control the edema. We will encourage the patient to keep her leg elevated as much as possible. We will also make sure we maximize the patient's oral protein supplementation for healing. We will start the patient on doxycycline 100 mg p.o. b.i.d., #30 empirically. Lortab 5 mg will be added for pain every 4 hours #40. The patient to follow up in our clinic in the next 2-3 weeks. We will also continue with home health nurses coming to the patient's home. I have written these instructions and we will forward them onto the home health nurses. By: 1325 0458 Celestino Livingston MD /yung
[2018-01-02 10:17] VITALS: BP 134/71
[2018-01-02 10:32] LABS: ABSOLUTE NEUTROPHILS 2.7 thou/uL (1.4-8.2); EOSINOPHILS 5.4 % (0.0-3.0); HEMATOCRIT 32.5 % (37.0-47.0); HEMOGLOBIN 10.6 gm/dL (12.0-15.0); LYMPHOCYTES 17.8 % (24.0-44.0); MCH 24.7 pg (26.0-34.0); MCHC 32.6 g/dL (28.0-37.0); MCV 75.7 fL (80.0-100.0); MONOCYTES 8.9 % (1.0-8.0); PLATELET COUNT 347 thou/uL (150-400); POLYS 65.9 % (36.0-66.0); RDW 20.1 % (10.5-14.5); WBC 4.1 thou/uL (4.0-11.0)
[2018-01-02 11:23] LABS: ANISOCYTOSIS 2+; MICROCYTES 1+; PLATELET ESTIMATE NORMAL
== END ==
LOC: HYPER 08:16 → SEN 08:16
PROVIDERS: Nurse Practitioner Family
DX: S81.802A Unspecified open wound, left lower leg, initial encounter (principal); I25.10 Atherosclerotic heart disease of native coronary artery without angina pectoris; I13.0 Hypertensive heart and chronic kidney disease with heart failure and stage 1 through stage 4 chronic kidney disease, or unspecified chronic kidney disease; N18.3 Chronic kidney disease, stage 3 (moderate); I50.9 Heart failure, unspecified; R53.81 Other malaise; R60.0 Localized edema; X58.XXXA Exposure to other specified factors, initial encounter; Y93.89 Activity, other specified; Y92.89 Other specified places as the place of occurrence of the external cause; Y99.8 Other external cause status; Z86.79 Personal history of other diseases of the circulatory system

== ENCOUNTER → 2018-03-25 | Outpatient (CLI) | payer OTHER | LOC: HYPER 01-03 13:18 | DX: S81.802A Unspecified open wound, left lower leg, initial encounter (principal); I13.0 Hypertensive heart and chronic kidney disease with heart failure and stage 1 through stage 4 chronic kidney disease, or unspecified chronic kidney disease; I50.9 Heart failure, unspecified; N18.3 Chronic kidney disease, stage 3 (moderate); I25.10 Atherosclerotic heart disease of native coronary artery without angina pectoris; I25.2 Old myocardial infarction; I73.9 Peripheral vascular disease, unspecified; G89.29 Other chronic pain; J42 Unspecified chronic bronchitis; J45.909 Unspecified asthma, uncomplicated; K21.9 Gastro-esophageal reflux disease without esophagitis; Z86.73 Personal history of transient ischemic attack (TIA), and cerebral infarction without residual deficits; Z87.891 Personal history of nicotine dependence; Z79.82 Long term (current) use of aspirin; W19.XXXA Unspecified fall, initial encounter; Y93.89 Activity, other specified; Y92.89 Other specified places as the place of occurrence of the external cause; Y99.8 Other external cause status ==

== ENCOUNTER → 2018-04-17 | Outpatient (CLI) | payer OTHER ==
--- NOTE | 2018-04-17 15:27 | EKG ---
[address] [place] [address] ELECTROCARDIOGRAM REPORT Name: TRAVIS GUSTAFSON Room #: [facility] Hopkins#: [id number] Admission: 04/17/18 Attend Phys: YANN Burch Discharge: Date of : 31 Report #: [id number] THIS REPORT FOR: //name// [facility] Test Date: 2018-04-17 Test Time: 12:01:12 Pat Name: TRAVIS GUSTAFSON Department: Room: Gender: F Casting Assistant: Yuliya CALDWELL : 1930 Requested By: Ginger Gr Order Number: [id number] MD: Brandan Howard Measurements Intervals [place] Rate: 62 P: 51 GA: 147 QRS: 38 QRSD: 83 T: 54 QT: 477 QTc: 485 Interpretive Statements Sinus rhythm Consider left ventricular hypertrophy Compared to ECG 12/26/2017 17:18:57 Bradycardia, nonsinus no longer present Atrial premature complex(es) no longer present Electronically Signed On 04-17-2018 15:27:14 FURNACE FEEDER by Brandan Howard [email or web address] <ELECTRONICALLY SIGNED> By: Brandan Howard MD 04/17/18 1527 1201 1201 Brandan Howard MD /EPI
== END ==
LOC: CV 08:36 → SEN 08:36
DX: I51.7 Cardiomegaly (principal); J98.11 Atelectasis

== ENCOUNTER → 2018-05-15 | Outpatient (CLI) | payer OTHER ==
[2018-05-15 11:14] LABS: ABSOLUTE NEUTROPHILS 3.1 thou/uL (1.4-8.2); BASOPHILS 1.6 % (0.0-2.0); EOSINOPHILS 6.3 % (0.0-3.0); HEMATOCRIT 35.9 % (37.0-47.0); HEMOGLOBIN 11.6 gm/dL (12.0-15.0); MCH 24.8 pg (26.0-34.0); MCHC 32.3 g/dL (28.0-37.0); MCV 76.7 fL (80.0-100.0); MONOCYTES 7.5 % (1.0-8.0); PLATELET COUNT 270 thou/uL (150-400); POLYS 70.6 % (36.0-66.0); RBC 4.68 mil/uL (4.20-5.00); RDW 21.3 % (10.5-14.5); WBC 4.3 thou/uL (4.0-11.0)
[2018-05-15 11:31] LABS: ALBUMIN 3.3 g/dL (3.4-5.0); CALCIUM 9.2 mg/dL (8.5-10.1); TOTAL BILIRUBIN 0.3 mg/dL (<0.1-1.0); TOTAL PROTEIN 7.3 g/dL (6.4-8.2)
[2018-05-15 11:44] LABS: MICROCYTES 2+; PLATELET ESTIMATE NORMAL
[2018-05-15 11:45] LABS: ANISOCYTOSIS 2+
== END ==
LOC: SEN 09:39
PROVIDERS: Nurse Practitioner Family
DX: I10 Essential (primary) hypertension (principal); Z86.73 Personal history of transient ischemic attack (TIA), and cerebral infarction without residual deficits